=== PATIENT | male | born 1955 | race Caucasian/White ===

== ENCOUNTER 2021-04-28 10:51 | Emergency (ER) | payer OTHER, MEDICARE ==
[~2021-04-28] VITALS: Ht 188 cm; Wt 76.2 kg
[~2021-04-28 10:51] MED LIST: ACETAMINOPHEN650 M5 PO; HYDROCODON-ACE1 EAC8 PO; MOM PO; MULTIVITAMINS; MYLANTA 12 OZ355 M1 PO; NOHOMEMEDICATIONS; VITAMINC500
[2021-04-28 11:55] LABS: ABSOLUTE EOSINOPHILS 0.1 thou/uL (0.0-0.7); ABSOLUTE MONOCYTES 0.6 thou/uL (0.0-1.2); ABSOLUTE NEUTROPHILS 5.4 thou/uL (1.6-8.1); BASOPHILS 0.3 %; EOSINOPHILS 1.5 %; HEMATOCRIT 43.5 % (42.0-52.0); HEMOGLOBIN 14.8 gm/dL (14.0-18.0); LYMPHOCYTES 13.9 %; MCH 29.7 pg (26.0-34.0); MCV 87.4 fL (80.0-100.0); MONOCYTES 8.3 %; MPV 7.9 fl. (7.2-11.1); NUCLEATED RBCS 0 /100WBC; PLATELET COUNT* 246 thou/uL (150-400); RBC 4.98 mil/uL (4.50-6.00); RDW-CV 13.5 % (10.5-14.5); WBC 7.2 thou/uL (4.0-11.0)
[2021-04-28 12:11] LABS: POTASSIUM 3.9 mmol/L (3.5-5.1)
[2021-04-28 12:16] LABS: ALBUMIN 3.8 g/dL (3.4-5.0); TOTAL BILIRUBIN 0.8 mg/dL (<0.1-1.0)
[2021-04-28] MEDS ORDERED: NORVASC10 MG PO (13:04)
[2021-04-28 13:15] VITALS: BP 163/97
--- NOTE | 2021-04-30 11:25 | EKG ---
[place] [address] ELECTROCARDIOGRAM REPORT Name: ISIS LAGOS Room: [facility]#: [id number] Admission: 04/28/21 Attend Phys: Discharge: 04/28/21 Date of : 53 Date of Service: 04/28/21 1113 Report #: [id number] THIS REPORT FOR: //name// [facility] ED Test Date: 2021-04-28 Test Time: 11:13:32 Pat Name: ISIS LAGOS Department: Room: Gender: Scientific Software Developer: : 1955 Requested By: Zain Bell Order Number: [id number] MD: Carlos Ro Measurements Intervals [place] Rate: 79 P: 88 SD: 163 QRS: 55 QRSD: 108 T: 76 QT: 390 QTc: 448 Interpretive Statements Sinus rhythm Left atrial enlargement RSR' in V1 or V2, probably normal variant Compared to ECG 10/13/2011 15:57:51 Sinus bradycardia no longer present ST (T wave) deviation still present Electronically Signed On 04-30-2021 11:24:59 STAGE DIRECTOR by Carlos Ro [email or web address] <ELECTRONICALLY SIGNED> By: Carlos Ro MD, FAC 04/30/21 1124 1113 1113 Carlos Ro MD, FAC /EPI
== END 2021-04-28 13:15 | disposition home or self-care (01) ==
LOC: M.ERS 10:51
PROVIDERS: Family Medicine
DX: I10 Essential (primary) hypertension (principal)